=== PATIENT | male | born 1965 | race Caucasian/White ===

== ENCOUNTER → 2023-05-08 10:20 | Outpatient (BNVA) | payer BC, SELFPAY | PROVIDERS: Family Provider Family Medicine; Visit Provider Family Medicine | DX: R03.0 Elevated blood-pressure reading, without diagnosis of hypertension (principal) | CPT/HCPCS: 80053; 80061; 84439; 84443; 85025 ==

== ENCOUNTER 2023-10-12 11:30 | Emergency (ER) | payer BC, MEDICAID, SELFPAY ==
[2023-10-12 11:33] VITALS: BP 135/87; PULSE 93; RESP 16; TEMP 36.4; O2SAT 95; BMI 22.8
--- NOTE | 2023-10-12 11:41 | ECG_ITS ---
[facility] Test Date: 2023-10-12 Pat Name: Jerry Chaidez Department: Room: Gender: Male Trailer Driver: : [id number] Requested By: May Wilkinson Order Number: [id number] Maryjane MD: Farshad Lazo M.D. Measurements Intervals [place] Rate: 87 P: 78 VT: 165 QRS: 91 QRSD: 93 T: 75 QT: 305 QTc: 367 Interpretive Statements SINUS RHYTHM POSSIBLE LEFT ATRIAL ENLARGEMENT [-0.1mV P-WAVE IN V1/V2] BORDERLINE RIGHT AXIS DEVIATION [QRS AXIS > 90] No previous ECG available for comparison Electronically Signed On 10-13-2023 8:38:16 [employer] by Farshad Lazo M.D. [id number]
--- NOTE | 2023-10-12 11:41 | XRR_ITS ---
PROCEDURE INFORMATION: Exam: XR Right Ribs with PA Chest Exam date and time: 10/12/2023 12:12 PM Age: 57 years old Clinical indication: Injury or trauma; Fall; Rib area; Blunt trauma (contusions or hematomas) TECHNIQUE: Imaging protocol: Radiologic exam of the right ribs with PA chest. Views: 3 views COMPARISON: No relevant prior studies available. FINDINGS: Lungs: Unremarkable. No consolidation. Pleural spaces: Unremarkable. No pleural effusion. No pneumothorax. Heart/Mediastinum: Unremarkable. No cardiomegaly. Bones/joints: There is barely discernible irregularity of the anterior aspect of the right 9th rib which could represent a nondisplaced fracture. XR/XR ribs RT mn 3V w CXR1V [id number] IMPRESSION: Possible minimal nondisplaced fracture.
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
[2023-10-12 11:48] VITALS: BP 141/97; PULSE 94; O2SAT 93
[2023-10-12] MEDS: naproxen 500 mg Tablet PO (11:56)
== END 2023-10-12 12:32 | disposition home or self-care (01) ==
PROVIDERS: Emergency Provider Emergency Medicine; Family Provider Family Medicine; PCP Family Medicine
DX: S20.211A Contusion of right front wall of thorax, initial encounter (principal); F17.210 Nicotine dependence, cigarettes, uncomplicated; W22.03XA Walked into furniture, initial encounter
CPT/HCPCS: 71101; 93005; 99284